=== PATIENT | female | born 1980 | race Caucasian/White ===

== ENCOUNTER 2020-07-11 12:31 | Emergency (ER) | payer OTHER ==
[~2020-07-11 12:31] MED LIST: COLACE100 MG PO; MOTRIN600 MG PO; PRENATAL MULTI1 EAC2 PO
[2020-07-11 14:56] LABS: CORONAVIRUS 2019 SARS-COV-2 NEGATIVE (NEGATIVE); INFLUENZA A NAA NEGATIVE (NEGATIVE)
[2020-07-11] MEDS ORDERED: ZPAK PO (15:42)
[2020-07-11] MEDS ORDERED: MEDROL 4MG DOSEP4 MG PO (15:42)
[2020-07-11] MEDS ORDERED: VENTOLIN HFA IN18 GM INH (15:43)
== END 2020-07-11 16:29 | disposition home or self-care (01) ==
LOC: FER 12:31
PROVIDERS: Emergency Medicine
DX: J06.9 Acute upper respiratory infection, unspecified (principal); Z20.822 Contact with and (suspected) exposure to COVID-19
CPT/HCPCS: 71045; J1100; U0002